=== PATIENT | female | born 1980 | race Caucasian/White ===

== ENCOUNTER 2017-07-15 00:40 | Inpatient (IN) | payer OTHER ==
[~2017-07-15 00:40] MED LIST: AMPICILLIN - 2 GM in SODIUM CHLORIDE 100 ML IVPB ONE
[2017-07-15] MEDS: ELECTROLYTE-148 SOLN 1,000 ML IV SCH (01:30)
[2017-07-15 02:25] LABS: BASO % 0.3 % (0-2.0); EOS % 0.3 % (0-4.5); HEMATOCRIT 30.8 % (32.4-45.2); HEMOGLOBIN 9.8 GM/dL (10.7-15.3); LYMPH % 13.7 % (8-40); MCH 25.3 pg (25.7-33.7); MCHC 31.9 g/dl (32.0-36.0); MEAN CELL VOLUME 79.1 fl (80-96); MEAN PLT VOLUME 9.3 fl (7.5-11.1); MONO % 7.7 % (3.8-10.2); PLATELET COUNT 190 K/MM3 (134-434); RDW 19.4 % (11.6-15.6); WHITE BLOOD COUNT 8.8 K/mm3 (4.0-10.0)
[2017-07-15 02:38] VITALS: BMI 27.7
[2017-07-15] MEDS ORDERED: AMPICILLIN SODIUM 2 GM VIAL ONE (02:51)
[2017-07-15 02:53] LABS: INR 0.88 (0.82-1.09); PROTHROMBIN TIME (PATIENT) 9.9 SEC (9.98-11.88)
[2017-07-15 02:56] LABS: ACTIVATED PTT 25.5 SECONDS (26.9-34.4)
[2017-07-15 03:07] LABS: ANION GAP 10 (8-16); BLOOD UREA NITROGEN 7 mg/dL (7-18); CALCIUM 7.8 mg/dL (8.5-10.1); CHLORIDE 106 mmol/L (98-107); CO2 21 mmol/L (21-32); CREATININE 0.5 mg/dL (0.55-1.02); GLUCOSE,RANDOM 80 mg/dL (74-106); POTASSIUM 3.9 mmol/L (3.5-5.1); SODIUM 137 mmol/L (136-145)
[2017-07-15] MEDS: AMPICILLIN - 1 GM in SODIUM CHLORIDE 100 ML IVPB SCH ×5 (04:40→11:00)
[2017-07-15] MEDS ORDERED: AMPICILLIN SODIUM 1 GM VIAL ONE (06:07)
[2017-07-15] MEDS ORDERED: PROMETHAZINE HCL 25 MG/1 ML VIAL IVPUSH ONE (07:30)
[2017-07-15] MEDS ORDERED: BUTORPHANOL TARTRATE 1 MG/ML VIAL IVPUSH ONE (07:30)
--- NOTE | 2017-07-15 07:30 | HP ---
Past Medical History - Primary Care Physician PCP:: Gelacio Quiñonez - Admission Chief Complaint: 40 weeks, labor History of Present Illness: 37 yo f g 2 p1001 edc by sono 07/13/17 in labor, cx 3 cm 80 vx -2 mi, fhr cat 1, irregular contraction History Source: Patient Limitations to Obtaining History: No Limitations - Past Medical History ...: 2 ...Para: 1 ...Term: 1 ...LMP: 10/12/16 ... Weeks Gestation by Dates: 39.3 ...EDC by Dates: 07/19/17 ...EDC by Sono: 07/13/17 - Past Surgical History Hx Myomectomy: No Hx Transabdominal Cerclage: No - Smoking History Smoking history: Never smoked Have you smoked in the past 12 months: No - Alcohol/Substance Use Hx Alcohol Use: No - Social History Usual Living Arrangement: Yes: With Spouse History of Recent Travel: No Home Medications - Allergies Allergies/Adverse Reactions: Allergies Allergy/AdvReac Type Severity Reaction Status Date / Time No Known Allergies Allergy Verified 07/15/17 07:00 - Home Medications Home Medications: Ambulatory Orders Ferrous Sulfate Liquid [Feosol Liquid] 300 mg PO DAILY 07/15/17 Vit Calc,Iron,Folic [ Vitamins] 1 each PO DAILY 07/15/17 Review of Systems - Review of Systems Constitutional: reports: No Symptoms Eyes: reports: No Symptoms HENT: reports: No Symptoms Neck: reports: No Symptoms Cardiovascular: reports: No Symptoms Respiratory: reports: No Symptoms Gastrointestinal: reports: No Symptoms Genitourinary: reports: No Symptoms Breasts: reports: No Symptoms Reported Musculoskeletal: reports: No Symptoms Integumentary: reports: No Symptoms Neurological: reports: No Symptoms Endocrine: reports: No Symptoms Hematology/Lymphatic: reports: No Symptoms Psychiatric: reports: No Symptoms Physical Exam - Maternity Vital Signs: Vital Signs Temperature 98.1 F 07/15/17 07:00 Pulse Rate 88 07/15/17 07:00 Respiratory Rate 20 07/15/17 07:00 Blood Pressure 107/61 07/15/17 07:00 O2 Sat by Pulse Oximetry (%) Constitutional: Yes: Well Nourished, No Distress, Calm Eyes: Yes: WNL, Conjunctiva Clear, EOM Intact HENT: Yes: WNL, Atraumatic, Normocephalic Neck: Yes: WNL, Supple, Trachea Midline Cardiovascular: Yes: WNL, Regular Rate and Rhythm Breast(s): Yes: WNL - Abdominal Exam/OB Number of Fetuses: Single Presentation: Vertex Contractions: Yes Regularity: Irregular Intensity: Mod/Strong Monitor Mode: External Heart Rate Location: [facility] Category: I Accelerations: Uniform Decelerations: None - Vaginal Exam/OB Vaginal Bleediing: Bloody Show Speculum Exam: No Dilatation (cm): 3 cm Effacement (%): 80 Amniotic Membrane Status: Bulging Presentation: Vertex/Position Station: -2 - Physical Exam Musculoskeletal: Yes: WNL Extremities: Yes: WNL Edema: Yes Edema: LLE: Trace, RLE: Trace Deep Tendon Reflex Grade: Normal +2 - Labs Lab Results: CBC, BMP 07/15/17 02:10 07/15/17 02:10 Hemorrhage Risk Assessment - Risk Factors Medium Risk Factors: Yes: None High Risk Factors: Yes: None Risk Score: 1 Risk Level: Medium Risk Problem List - Problems (1) Postmaturity , 40-42 weeks gestation Code(s): O48.0 - POST-TERM (2) Labor established Code(s): [id number] - (3) Advanced maternal age (AMA) in Code(s): [id number] - (4) Fibroid uterus Code(s): D25.9 - LEIOMYOMA OF UTERUS, UNSPECIFIED Qualifiers: Uterine leiomyoma location: intramural Qualified Code(s): D25.1 - Intramural leiomyoma of uterus Assessment/Plan admit, heart monitoring, pain management GBS positve , amp.prophylaxis
[2017-07-15] MEDS ORDERED: FENTANYL/BUPIVACAINE/NS/PF - PCEA - 50 ML DISP.SYRIN EP ONE (07:59)
[2017-07-15] MEDS ORDERED: NALOXONE HCL 0.4 MG/ML VIAL IVPUSH PRN (08:53)
[2017-07-15] MEDS ORDERED: FENTANYL/BUPIVACAINE/NS/PF - PCEA - 50 ML DISP.SYRIN EP SCH (09:00)
[2017-07-15] MEDS ORDERED: TUBERCULIN PPD 5 TU/0.1ML SYRINGE (IN PATIENT USE ONLY) ID ONE (10:00)
[2017-07-15] MEDS ORDERED: OXYTOCIN 20 UNITS in 0.9% NS 40 UNIT/2,000 ML INFUS.BAG IV ONE (10:59)
[2017-07-15] MEDS ORDERED: AMPICILLIN - 1 GM in SODIUM CHLORIDE 100 ML IVPB SCH (11:00)
[2017-07-15] MEDS ORDERED: LIDOCAINE HCL 1% PRESERVATIVE FREE - 30ML VIAL ONE (11:35)
--- NOTE | 2017-07-15 11:44 | PN ---
Progress Note (short form) - Note Progress Note: cx full 100 vx 0 mr fhr cat 1, wants to push Problem List - Problems (1) Postmaturity , 40-42 weeks gestation Code(s): O48.0 - POST-TERM (2) Labor established Code(s): [id number] - (3) Advanced maternal age (AMA) in Code(s): [id number] - (4) Fibroid uterus Code(s): D25.9 - LEIOMYOMA OF UTERUS, UNSPECIFIED Qualifiers: Uterine leiomyoma location: intramural Qualified Code(s): D25.1 - Intramural leiomyoma of uterus
[2017-07-15] MEDS ORDERED: WITCH HAZEL 50% (TUCKS) 40 PAD/JAR PAD TP PRN (12:08)
[2017-07-15] MEDS ORDERED: METHYLERGONOVINE MALEATE 0.2 MG/1 ML AMP IM PRN (12:08)
[2017-07-15] MEDS ORDERED: BISACODYL 10 MG SUPP.RECT RC PRN (12:08)
[2017-07-15] MEDS ORDERED: BENZOCAINE 28 GM HEMORRHOIDAL OINTMENT TP PRN (12:08)
[2017-07-15] MEDS ORDERED: BENZOCAINE 20% 57 GM BOTTLE TP PRN (12:08)
[2017-07-15] MEDS ORDERED: oxyCODONE HCL 5 MG TABLET PO PRN (12:08)
[2017-07-15] MEDS ORDERED: D5W-LR W/ 20 UNITS OXYTOCIN 20 UNIT/1,000 ML INFUS.BAG IV SCH (12:15)
[2017-07-15] MEDS: ACETAMINOPHEN 325 MG TABLET (FP) PO PRN ×2 (12:30→20:10)
[2017-07-15] MEDS: IBUPROFEN 600 MG TABLET (FP) PO PRN ×2 (12:30→20:10)
[2017-07-15] MEDS ORDERED: OXYTOCIN 20 UNITS in 0.9% NS 20 UNIT/1,000 ML INFUS.BAG IV ONE (17:45)
[2017-07-15] MEDS ORDERED: OXYTOCIN 20 UNITS in 0.9% NS 20 UNIT/1,000 ML INFUS.BAG IV SCH (18:45)
[2017-07-15] MEDS: FERROUS SO4 325 MG TABLET (FP) PO SCH (22:54)
[2017-07-16] MEDS: ELECTROLYTE-148 SOLN 1,000 ML IV SCH (03:26)
[2017-07-16 06:53] LABS: BASO % 0.7 % (0-2.0); EOS % 0.6 % (0-4.5); HEMOGLOBIN 8.8 GM/dL (10.7-15.3); LYMPH % 13.4 % (8-40); MCH 25.1 pg (25.7-33.7); MCHC 31.2 g/dl (32.0-36.0); MEAN CELL VOLUME 80.3 fl (80-96); MONO % 7.1 % (3.8-10.2); NEUT % 78.2 % (42.8-82.8); PLATELET COUNT 174 K/MM3 (134-434); RBC 3.49 M/mm3 (3.60-5.2); RDW 19.6 % (11.6-15.6); WHITE BLOOD COUNT 10.5 K/mm3 (4.0-10.0)
[2017-07-16] MEDS: FERROUS SO4 325 MG TABLET (FP) PO SCH ×2 (09:57→21:56)
[2017-07-16] MEDS: PRENATAL VITAMINS W/ FOLIC ACID TABLET (FP) PO SCH (09:57)
[2017-07-16] MEDS: IBUPROFEN 600 MG TABLET (FP) PO PRN ×3 (09:59→21:59)
[2017-07-16] MEDS: ACETAMINOPHEN 325 MG TABLET (FP) PO PRN ×3 (10:00→21:56)
--- NOTE | 2017-07-16 10:51 | PN ---
Progress Note (short form) - Note Progress Note: ppd 1 doing well, no c/o voids ok, no excess vaginal bleeding, no dizziness CBC, BMP 07/16/17 06:40 07/15/17 02:10 Last Vital Signs Temp Pulse Resp BP Pulse Ox 99.2 F 81 19 107/70 100 07/16/17 09:38 07/16/17 09:38 07/16/17 09:38 07/16/17 09:38 07/15/17 11:35 abdomen soft, no distension, no cva uterus firm, non tender lochia mild no calf tendernes plan ambulate. iron vit Problem List - Problems (1) Postmaturity , 40-42 weeks gestation Code(s): O48.0 - POST-TERM (2) Labor established Code(s): [id number] - (3) Advanced maternal age (AMA) in Code(s): [id number] - (4) Fibroid uterus Code(s): D25.9 - LEIOMYOMA OF UTERUS, UNSPECIFIED Qualifiers: Uterine leiomyoma location: intramural Qualified Code(s): D25.1 - Intramural leiomyoma of uterus
[2017-07-16] MEDS ORDERED: SENNOSIDES/DOCUSATE COMBO (SENNA PLUS) TABLET (UD) PO PRN (22:00)
[2017-07-17] MEDS: ACETAMINOPHEN 325 MG TABLET (FP) PO PRN (06:05)
[2017-07-17] MEDS: IBUPROFEN 600 MG TABLET (FP) PO PRN (06:05)
[2017-07-17 08:25] VITALS: BP 106/65; PULSE 68; TEMP 98.2
--- NOTE | 2017-07-17 09:03 | DS ---
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: Vital Signs Temperature 98.2 F 07/17/17 08:24 Pulse Rate 68 07/17/17 08:24 Respiratory Rate 18 07/17/17 08:24 Blood Pressure 106/65 07/17/17 08:24 O2 Sat by Pulse Oximetry (%) 100 07/15/17 11:35 Constitutional: Yes: Well Nourished, No Distress, Calm Eyes: Yes: WNL, Conjunctiva Clear, EOM Intact HENT: Yes: WNL, Atraumatic, Normocephalic Neck: Yes: WNL, Supple, Trachea Midline Cardiovascular: Yes: WNL, Regular Rate and Rhythm Respiratory: Yes: WNL, Regular, CTA Bilaterally Gastrointestinal: Yes: WNL ...Rectal Exam: Yes: WNL Renal/: Yes: WNL External Genitalia: Yes: Normal ....Post : Yes: Uterus firm, Uterus non-tender, Slight lochia rubra Breast(s): Yes: WNL Musculoskeletal: Yes: WNL Extremities: Yes: WNL Edema: LLE: Trace, RLE: Trace Integumentary: Yes: WNL Neurological: Yes: WNL, Alert, Oriented ...Motor Strength: WNL Psychiatric: Yes: WNL, Alert, Oriented Labs: CBC, BMP 07/16/17 06:40 07/15/17 02:10 Delivery - Delivery Vaginal Delivery: Spontaneous (no complication) Type of Anesthesia: Epidural Episiotomy/Laceration: None EBL (cc): 250 Delivery, Single - Stages of Labor Date 1st Stage Initiatied: 07/14/17 Time 1st Stage Initiated: 11:00 Date 2nd Stage Initiated: 07/15/17 Time 2nd Stage Initiated: 11:40 Date of Delivery: 07/15/17 Time of Delivery: 12:05 Time Placenta Delivered: 12:10 Placenta: Yes: Spontaneous - 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 Gender: Female Weight: 8 lb Position: Left, OA Total Hours ROM (Hrs/Mins): 1hr 15min - 1 Minute Total Score: 9 5 Minutes Total Score: 9 - [place] Feeding Plan Initial Plan: Exclusive throughout hospitalization Discharge Summary Reason For Visit: LABOR ADMIT Current Active Problems Advanced maternal age (AMA) in (Acute) Fibroid uterus (Acute) Labor established (Acute) Postmaturity , 40-42 weeks gestation (Acute) Other Procedures: Hospital Course: no complication Condition: Good - Instructions Diet, Activity, Other Instructions: regular diet, no intercourse, follow up off ice 4 weeks Referrals: Gelcaio Quiñonez MD [Staff Physician] - Disposition: HOME - Home Medications Comprehensive Discharge Medication List: Ambulatory Orders Ferrous Sulfate Liquid [Feosol Liquid] 300 mg PO DAILY 07/15/17 Vit Calc,Iron,Folic [ Vitamins] 1 each PO DAILY 07/15/17 Ibuprofen [Motrin -] 600 mg PO TID #21 tablet 07/17/17
[2017-07-17] MEDS: FERROUS SO4 325 MG TABLET (FP) PO SCH (09:12)
[2017-07-17] MEDS: PRENATAL VITAMINS W/ FOLIC ACID TABLET (FP) PO SCH (09:12)
== END 2017-07-17 12:40 | disposition home or self-care (01) | DRG 775 ==
LOC: JLDR 00:40 → J3W 14:30
PROVIDERS: ADMIT Obstetrics & Gynecology; ATTEND Obstetrics & Gynecology
PROC: 10E0XZZ Delivery of Products of Conception, External Approach (ICD-10-PCS; principal; 2017-07-15)
DX: O48.0 Post-term pregnancy (principal); O99.824 Streptococcus B carrier state complicating childbirth; O34.13 Maternal care for benign tumor of corpus uteri, third trimester; D25.1 Intramural leiomyoma of uterus; Z3A.40 40 weeks gestation of pregnancy; Z37.0 Single live birth
CPT/HCPCS: 36415; 59409; 80048; 85025; 85610; 85730; 86593; 86850; 86900; 86901

== ENCOUNTER 2018-08-22 23:11 | Emergency (ER) | payer OTHER ==
[2018-08-22 23:19] VITALS: BP 111/67; PULSE 74; TEMP 98.5; BMI 20.3
--- NOTE | 2018-08-23 00:20 | PDOC ---
History of Present Illness - General Chief Complaint: Vaginal Bleeding Stated Complaint: VAGINAL BLEEDING + Time Seen by Provider: 08/23/18 00:07 History Source: Patient Exam Limitations: No Limitations - History of Present Illness Travel History: No Timing/Duration: reports: changing over time Quality: reports: mild (vaginal bleeding) Pain Radiation: reports: no radiation Aggravating Factors: improves with: None Past History - Past Medical History Allergies/Adverse Reactions: Allergies Allergy/AdvReac Type Severity Reaction Status Date / Time No Known Allergies Allergy Verified 08/22/18 23:19 Home Medications: Ambulatory Orders Ferrous Sulfate Liquid [Feosol Liquid] 300 mg PO DAILY 07/15/17 Vit Calc,Iron,Folic [ Vitamins] 1 each PO DAILY 07/15/17 Ibuprofen [Motrin -] 600 mg PO TID #21 tablet 07/17/17 Asthma: No Cancer: No Cardiac Disorders: No COPD: No Diabetes: No HTN: No Seizures: No Thyroid Disease: No - Immunization History Immunization Up to Date: Yes - Suicide/Smoking/Psychosocial Hx Smoking History: Never smoked Have you smoked in the past 12 months: No Information on smoking cessation initiated: No Hx Alcohol Use: No Drug/Substance Use Hx: No Hx Substance Use Treatment: No Review of Systems - Review of Systems Able to Perform ROS?: Yes Is the patient limited Azeri proficient: No Constitutional: No: Symptoms Reported, See HPI, Chills, Diaphoresis, Fever, Loss of Appetite, Malaise, Night Sweats, Weakness, Weight Stable, Unintentional Wgt. Loss, Unexplained wgt Loss, Other HEENTM: No: Symptoms Reported, See HPI, Eye Pain, Blurred Vision, Tearing, Recent change in vision, Double Vision, Cataracts, Ear Pain, Ocular Prothesis, Ear Discharge, Nose Pain, Nose Congestion, Tinnitus, Nose Bleeding, Hearing Loss , Throat Pain, Throat Swelling, Mouth Pain, Dental Problems, Difficulty Swallowing, Mouth Swelling, Other Respiratory: No: Symptoms reported, See HPI, Cough, Orthopnea, Shortness of Breath, SOB with Exertion, SOB at Rest, Stridor, Wheezing, Productive cough, Hemoptysis, Other Cardiac (ROS): No: Symptoms Reported, See HPI, Chest Pain, Edema, Irregular Heart Rate, Lightheadedness, Palpitations, Syncope, Chest Tightness, Other ABD/GI: No: Symptoms Reported, See HPI, Abdominal Distended, Abd. Pain w/ defecation, Blood Streaked Bowels, Constipated, Diarrhea, Difficulty Swallowing , Nausea, Poor Appetite, Poor Fluid Intake, Rectal Bleeding, Vomiting, Indigestion, Abdominal cramping, Tarry Stools, Other : Yes: Other (vaginal bleeding) Musculoskeletal: No: Symptoms Reported, See HPI, Back Pain, Gout, Joint Pain, Joint Swelling, Muscle Pain, Muscle Weakness, Neck Pain, Joint Stiffness, Other Integumentary: No: Symptoms Reported, See HPI, Bruising, Change in Color, Change in Hair/Nails, Dryness, Erythema, Flushing, Lesions, Lumps, Pallor, Pruritus, Rash, Sweating, Other Neurological: No: Symptoms reported, See HPI, Headache, Numbness, Paresthesia, Pre-Existing Deficit, Seizure, Tingling, Tremors, Weakness, Unsteady Gait, Ataxia, Dizziness, Other Psychiatric: No: Anxiety, Depression, Frequent Crying, Stressors, Sleep Pattern Change, Emotional Problems, Mood Swings, Change in Appetite, Other Endocrine: No: Symptoms Reported, See HPI, Excessive Sweating, Flushing, Intolerance to Cold, Intolerance to Heat, Increased Hunger, Increased Thirst, Increased Urine, Unexplained Weight Gain, Unexplained Weight Loss, Change in Weight, Other *Physical Exam - Vital Signs Last Vital Signs Temp Pulse Resp BP Pulse Ox 98.5 F 74 16 111/67 100 08/22/18 23:15 08/22/18 23:15 08/22/18 23:15 08/22/18 23:15 08/22/18 23:15 - Physical Exam General Appearance: Yes: Nourished, Appropriately Dressed HEENT: positive: Normal ENT Inspection, Normal Voice Neck: positive: Supple Respiratory/Chest: positive: Lungs Clear, Normal Breath Sounds Cardiovascular: positive: Regular Rhythm, Regular Rate Female Pelvic Exam: positive: vaginal bleeding Gastrointestinal/Abdominal: positive: Normal Bowel Sounds, Soft Extremity: positive: Normal Inspection, Normal Range of Motion Integumentary: positive: Normal Color, Warm Neurologic: positive: Fully Oriented, Alert, Motor Strength 5/5 Moderate Sedation - Procedure Monitoring Vital Signs: Procedure Monitoring Vital Signs Temperature 98.5 F 08/22/18 23:15 Pulse Rate 74 08/22/18 23:15 Respiratory Rate 16 08/22/18 23:15 Blood Pressure 111/67 08/22/18 23:15 O2 Sat by Pulse Oximetry (%) 100 08/22/18 23:15 ED Treatment Course - RADIOLOGY Radiology Studies Ordered: Category Date Time Status TRANSVAGINAL US PREG [US] Stat Ultrasound 08/23/18 00:16 Ordered Medical Decision Making - Medical Decision Making 08/23/18 00:23 38-year-old female presents with vaginal bleeding this evening. She states her last menstrual cycle was June 20 of this year and she is followed by Dr. Sadie Elizondo [phone] Past medical history 3, para 2 08/23/18 01:[address] Elizondo. He says he did not want bhcg done. He saw this patient earlier today in his office and did a intra-vaginal ultrasound and found it consistent with a missed AB. However, the patient called him tonight that she is bleeding heavily, so he had her come to the emergency department. The concern was whether she had to have an emergent D&C. She has had one pad during her ER visit. She does not have large clots. Ultrasound does not show any visible intrauterine gestational sac, possibly due to early gestation or spontaneous . Endometrial stripe thickness 18 mm. No adnexal masses appreciated. No ovarian torsion seen in either ovary. Impression spontaneous Patient already has an appointment with Dr. Elizondo 08/23/18 02:08 *DC/Admit/Observation/Transfer Diagnosis at time of Disposition: Miscarriage - Discharge Dispostion Disposition: HOME Condition at time of disposition: Stable - Referrals Referrals: China Connors [Primary Care Provider] - Stanley Elizondo MD [Staff Physician] - - Patient Instructions Printed Discharge Instructions: DI for Miscarriage Additional Instructions: Take tylenol or motrin for pain Call Dr Elizondo for followup visit Return for any worsening symptoms - Post Discharge Activity
[2018-08-23] MEDS ORDERED: ACETAMINOPHEN 500 MG TABLET (FP) PO STA (02:02)
[2018-08-23] MEDS ORDERED: ACETAMINOPHEN 325 MG TABLET (FP) ONE (02:06)
[2018-08-23 02:13] LABS: BASO % 0.7 % (0-2.0); EOS % 2.1 % (0-4.5); HEMATOCRIT 33.2 % (32.4-45.2); HEMOGLOBIN 11.6 GM/dL (10.7-15.3); LYMPH % 17.8 % (8-40); MCH 32.2 pg (25.7-33.7); MCHC 34.8 g/dl (32.0-36.0); MEAN CELL VOLUME 92.5 fl (80-96); MEAN PLT VOLUME 8.3 fl (7.5-11.1); MONO % 6.3 % (3.8-10.2); NEUT % 73.1 % (42.8-82.8); PLATELET COUNT 207 K/MM3 (134-434); RBC 3.59 M/mm3 (3.60-5.2); RDW 14.8 % (11.6-15.6); WHITE BLOOD COUNT 7.5 K/mm3 (4.0-10.0)
[2018-08-23 02:51] LABS: ALBUMIN 3.8 g/dl (3.4-5.0); ALK PHOS 42 U/L (45-117); ANION GAP 5 MMOL/L (8-16); BILIRUBIN,TOTAL 0.2 mg/dL (0.2-1); BLOOD UREA NITROGEN 16 mg/dL (7-18); CALCIUM 8.6 mg/dL (8.5-10.1); CHLORIDE 105 mmol/L (98-107); CO2 26 mmol/L (21-32); CREATININE 0.5 mg/dL (0.55-1.3); GLUCOSE,RANDOM 94 mg/dL (74-106); SGOT/AST 12 U/L (15-37); SGPT/ALT 17 U/L (13-61); SODIUM 136 mmol/L (136-145); TOT PROT 7.1 g/dl (6.4-8.2)
== END 2018-08-23 02:09 | disposition home or self-care (01) ==
LOC: JER 23:11
DX: O26.891 Other specified pregnancy related conditions, first trimester (principal); O02.1 Missed abortion; Z3A.00 Weeks of gestation of pregnancy not specified
CPT/HCPCS: 36415; 76817-TC; 80053; 84702; 85025; 86850; 86900; 86901; 99281-25